=== PATIENT | male | born 1930 | race Caucasian/White ===

== ENCOUNTER 2017-11-07 20:35 | Emergency (ER) | payer MEDICARE ==
[~2017-11-07] VITALS: Ht 185.4 cm; Wt 65.7 kg
[~2017-11-07 20:35] MED LIST: ASPI-611 PO; ATEN25TA PO; CHOL10002 PO; CRAN307T PO; HYT1T PO; LISI40TA4 PO; MAGN400O6 PO; MULT1TAB74 PO; NIFE60TA2 PO; OMEG1CAP2 PF; POLY119P2 PO; ZOC40T PO
[2017-11-07 21:15] VITALS: BP 166/86
[2017-11-07] MEDS ORDERED: CLIN150C2 PO (23:11)
== END 2017-11-07 23:20 | disposition home or self-care (01) ==
LOC: ER 20:36
DX: L03.032 Cellulitis of left toe (principal); M79.675 Pain in left toe(s); I25.10 Atherosclerotic heart disease of native coronary artery without angina pectoris; I10 Essential (primary) hypertension; I25.2 Old myocardial infarction; Z90.49 Acquired absence of other specified parts of digestive tract; Z95.1 Presence of aortocoronary bypass graft; Z79.899 Other long term (current) drug therapy; Z79.82 Long term (current) use of aspirin
CPT/HCPCS: 99283

== ENCOUNTER 2017-11-18 09:15 | Emergency (ER) | payer MEDICARE ==
[~2017-11-18] VITALS: Ht 185.4 cm; Wt 81.8 kg
[~2017-11-18 09:15] MED LIST changes: +CLIN150C2 PO
[2017-11-18 09:18] VITALS: BP 141/67
[2017-11-18] MEDS ORDERED: TETanus/Pertussis (Acell)/Diphther VAC/PF (Tdap-Adult) 0.5ml syringe IM ONE (10:00)
[2017-11-18] MEDS ORDERED: CEPH-572 PO (10:18)
== END 2017-11-18 10:52 | disposition home or self-care (01) ==
LOC: ER 09:16
DX: M79.671 Pain in right foot (principal); I25.10 Atherosclerotic heart disease of native coronary artery without angina pectoris; I10 Essential (primary) hypertension; I25.2 Old myocardial infarction; Z90.49 Acquired absence of other specified parts of digestive tract; Z95.1 Presence of aortocoronary bypass graft; Z79.82 Long term (current) use of aspirin; Z79.899 Other long term (current) drug therapy; X50.1XXA Overexertion from prolonged static or awkward postures, initial encounter; Y93.89 Activity, other specified; Y92.091 Bathroom in other non-institutional residence as the place of occurrence of the external cause; Y99.9 Unspecified external cause status
CPT/HCPCS: 73620; 90471; 90715; 99284

== ENCOUNTER 2018-01-03 19:03 | Inpatient (IN) | payer MEDICARE ==
[~2018-01-03] VITALS: Ht 185.4 cm; Wt 82.0 kg
[~2018-01-03 19:03] MED LIST changes: -CLIN150C2 PO
[2018-01-03] MEDS ORDERED: normal saline 1000ML IV soln IVB ONE (20:20)
[2018-01-03 20:51] LABS: BASOPHILS % (AUTO) 0.4 % (0-1); EOSINOPHILS # (AUTO) 0.2 X10'3 (0-0.9); EOSINOPHILS % (AUTO) 1.9 % (0-6); HEMATOCRIT 34.2 % (42.0-52.0); HEMOGLOBIN 11.2 g/dl (14.0-17.9); LYMPHOCYTES # (AUTO) 1.3 X10'3 (1.1-4.8); LYMPHOCYTES % (AUTO) 12.8 % (21-51); MEAN CORPUSCULAR HEMOGLOBIN 32.3 PG (27.0-31.0); MEAN CORPUSCULAR HGB CONC 32.7 % (33.0-36.5); MEAN CORPUSCULAR VOLUME 98.8 FL (78-98); MEAN PLATELET VOLUME 7.2 FL (7.4-10.4); MONOCYTES # (AUTO) 0.8 X10'3 (0-0.9); MONOCYTES % (AUTO) 8.1 % (2-12); NEUTROPHILS # (AUTO) 7.9 X10'3 (1.8-7.7); NEUTROPHILS % (AUTO) 76.8 % (42-75); PLATELET COUNT 222 X10'3 (140-440); RED BLOOD COUNT 3.46 X10'6 (4.70-6.10); RED CELL DISTRIBUTION WIDTH 14.9 % (11.5-14.5); WHITE BLOOD COUNT 10.3 X10'3 (4.5-11.0)
[2018-01-03 20:56] LABS: PARTIAL THROMBOPLASTIN TIME 24 SECONDS (22-32); PROTHROMBIN TIME 10.4 SECONDS (9.0-12.0)
[2018-01-03 21:00] LABS: ALANINE AMINOTRANSFERASE 36 U/L (12-78); ALBUMIN 3.2 G/DL (3.4-5.0); ALKALINE PHOSPHATASE 55 IU/L (46-116); ANION GAP 13 (8-16); ASPARTATE AMINO TRANSFERASE 24 U/L (10-37); BILIRUBIN,TOTAL 0.3 MG/DL (0.1-1.0); BLOOD UREA NITROGEN 68 MG/DL (7-18); BUN/CREATININE RATIO 20.2 (5.4-32.0); CALCIUM 9.9 MG/DL (8.5-10.1); CHLORIDE 109 MMOL/L (99-107); CREATININE 3.37 MG/DL (0.60-1.10); GLUCOSE 110 MG/DL (70-104); POTASSIUM 5.2 MMOL/L (3.5-5.1); SODIUM 144 MMOL/L (135-145); TOTAL CARBON DIOXIDE 22.2 MMOL/L (24-32); TOTAL PROTEIN 6.4 G/DL (6.4-8.2); eGFR 17 ML/MIN
[2018-01-03] MEDS ORDERED: temazepam 15mg capsule PO PRN (21:00)
[2018-01-03 21:09] LABS: LACTIC SEPSIS 1.1 MMOL/L (0.4-2.0)
[2018-01-03 21:15] LABS: CREATINE KINASE 95 U/L (39-308); MAGNESIUM 2.7 MG/DL (1.5-2.4)
[2018-01-03 21:19] LABS: ACETAMINOPHEN < 2.0 UG/ML (10-30); ETHANOL < 0.010 GM/DL (0.0-0.010)
[2018-01-03 22:32] LABS: CLARITY,URINE CLEAR (Clear); COLOR,URINE YELLOW (Yellow); GLUCOSE, URINE NEGATIVE (Neg); KETONES,URINE NEGATIVE (Neg); LEUKOCYTE ESTERASE ,URINE NEGATIVE (Neg); NITRITES, URINE NEGATIVE (Neg); OCCULT BLOOD,URINE SMALL (Neg); PROTEIN,URINE NEGATIVE (Neg); UROBILINOGEN,URINE 0.2 E.U/dL (0.2-1.0)
[2018-01-03 22:35] LABS: UA COLLECTION TYPE CLN CATCH MIDSTREAM
[2018-01-03 22:46] LABS: URINE AMPHETAMINE SCREEN NEGATIVE (Neg); URINE BARBITUATE SCREEN NEGATIVE (Neg); URINE BENZODIAZEPINES SCREEN NEGATIVE (Neg); URINE CANNABINOID SCREEN NEGATIVE (Neg); URINE COCAINE SCREEN NEGATIVE (Neg); URINE METHADONE SCREEN NEGATIVE (Neg); URINE OPIATE SCREEN NEGATIVE (Neg); URINE PHENCYCLIDINE SCREEN NEGATIVE (Neg)
[2018-01-03 22:52] LABS: RBC,URINE 0-2 /HPF (0-2); WBC,URINE 0-4 /HPF (0-4)
[2018-01-03] MEDS ORDERED: DOCU-28 PO (22:52)
[2018-01-03 22:53] LABS: BACTERIA,URINE NONE SEEN /HPF (Neg); HYALINE CASTS 0-3 /LPF (NEGATIVE); SQUAMOUS EPITHELIAL CELL,UR NONE SEEN /LPF (FEW)
[2018-01-03] MEDS ORDERED: acetaminophen 325mg tablet PO PRN ×2 (23:25)
[2018-01-03] MEDS ORDERED: HYDROcodone/acetaminophen 5mg/325mg tablet PO PRN (23:25)
[2018-01-03] MEDS ORDERED: ondansetron/PF 4mg/2ml inj IV PRN (23:25)
[2018-01-03] MEDS ORDERED: magnesium hydroxide 30ml (MOM) UD suspension PO PRN (23:25)
[2018-01-03] MEDS ORDERED: mag hydrox/Alum hydrox/simeth 30ml oral suspension PO PRN (23:25)
[2018-01-04] VITALS (8 sets, daily range): BP systolic 137–165; BP diastolic 64–98
[2018-01-04 09:54] LABS: BASOPHILS % (AUTO) 0.3 % (0-1); EOSINOPHILS # (AUTO) 0.2 X10'3 (0-0.9); EOSINOPHILS % (AUTO) 1.9 % (0-6); HEMOGLOBIN 10.9 g/dl (14.0-17.9); LYMPHOCYTES # (AUTO) 1.4 X10'3 (1.1-4.8); LYMPHOCYTES % (AUTO) 13.5 % (21-51); MEAN CORPUSCULAR HEMOGLOBIN 32.5 PG (27.0-31.0); MEAN CORPUSCULAR VOLUME 98.7 FL (78-98); MEAN PLATELET VOLUME 7.3 FL (7.4-10.4); MONOCYTES # (AUTO) 0.8 X10'3 (0-0.9); MONOCYTES % (AUTO) 8.4 % (2-12); NEUTROPHILS # (AUTO) 7.6 X10'3 (1.8-7.7); NEUTROPHILS % (AUTO) 75.9 % (42-75); PLATELET COUNT 204 X10'3 (140-440); RED BLOOD COUNT 3.34 X10'6 (4.70-6.10); RED CELL DISTRIBUTION WIDTH 14.7 % (11.5-14.5)
[2018-01-04 10:16] LABS: ALBUMIN 2.9 G/DL (3.4-5.0); ANION GAP 7 (8-16); BLOOD UREA NITROGEN 62 MG/DL (7-18); BUN/CREATININE RATIO 18.7 (5.4-32.0); CALCIUM 9.2 MG/DL (8.5-10.1); CHLORIDE 109 MMOL/L (99-107); CREATININE 3.31 MG/DL (0.60-1.10); GLUCOSE 119 MG/DL (70-104); POTASSIUM 4.4 MMOL/L (3.5-5.1); SODIUM 140 MMOL/L (135-145); TOTAL CARBON DIOXIDE 23.9 MMOL/L (24-32); eGFR 18 ML/MIN
[2018-01-04] MEDS ORDERED: heparin 10,000 units/1 ML INJ IV PRN (12:40)
[2018-01-04] MEDS ORDERED: heparin 10,000 units/1 ML INJ IV ONE (12:40)
[2018-01-04 13:30] LABS: CHOL/HDL RATIO 2.3 (0.00-4.99); CHOLESTEROL 128 MG/DL (0-200); HDL CHOLESTEROL 56 MG/DL (35-60); LDL CHOLESTEROL 59 MG/DL (50-100); TRIGLYCERIDES 87 MG/DL (20-135)
[2018-01-04] MEDS: normal saline 1000ml 1,000 ML IV SCH ×2 (14:04→15:55)
[2018-01-04] MEDS: heparin 25,000 UNIT/250ml bag 250 ML IV SCH ×2 (14:11→23:42)
[2018-01-04] MEDS: atorvastatin 20mg tablet PO SCH (20:32)
[2018-01-04] MEDS: docusate sod 100mg capsule PO SCH (20:33)
[2018-01-05 02:09] LABS: BASOPHILS # (AUTO) 0.1 X10'3 (0-0.2); BASOPHILS % (AUTO) 1.2 % (0-1); EOSINOPHILS # (AUTO) 0.3 X10'3 (0-0.9); EOSINOPHILS % (AUTO) 3.4 % (0-6); HEMATOCRIT 30.1 % (42.0-52.0); HEMOGLOBIN 9.9 g/dl (14.0-17.9); LYMPHOCYTES # (AUTO) 1.9 X10'3 (1.1-4.8); LYMPHOCYTES % (AUTO) 18.8 % (21-51); MEAN CORPUSCULAR HEMOGLOBIN 32.5 PG (27.0-31.0); MEAN CORPUSCULAR HGB CONC 32.9 % (33.0-36.5); MEAN CORPUSCULAR VOLUME 98.9 FL (78-98); MEAN PLATELET VOLUME 7.4 FL (7.4-10.4); MONOCYTES # (AUTO) 1.2 X10'3 (0-0.9); MONOCYTES % (AUTO) 12.2 % (2-12); NEUTROPHILS # (AUTO) 6.5 X10'3 (1.8-7.7); NEUTROPHILS % (AUTO) 64.4 % (42-75); PLATELET COUNT 183 X10'3 (140-440); RED BLOOD COUNT 3.05 X10'6 (4.70-6.10); RED CELL DISTRIBUTION WIDTH 14.8 % (11.5-14.5)
[2018-01-05] MEDS: heparin 25,000 UNIT/250ml bag 250 ML IV SCH ×4 (02:50→23:35)
[2018-01-05] MEDS: normal saline 1000ml 1,000 ML IV SCH ×2 (05:14→16:53)
[2018-01-05 06:00] VITALS: BP 159/77
[2018-01-05] MEDS: HYDROcodone/acetaminophen 10/325mg tab PO PRN ×2 (07:03→23:10)
[2018-01-05 07:54] LABS: ALBUMIN 2.8 G/DL (3.4-5.0); ANION GAP 8 (8-16); BLOOD UREA NITROGEN 60 MG/DL (7-18); BUN/CREATININE RATIO 18.9 (5.4-32.0); CHLORIDE 110 MMOL/L (99-107); CREATININE 3.17 MG/DL (0.60-1.10); GLUCOSE 100 MG/DL (70-104); POTASSIUM 4.7 MMOL/L (3.5-5.1); SODIUM 142 MMOL/L (135-145); TOTAL CARBON DIOXIDE 23.6 MMOL/L (24-32); eGFR 19 ML/MIN
[2018-01-05 08:00] VITALS: BP_SYST 168; BP_SYST 173; BP_SYST 191; BP_DIAS 71; BP_DIAS 75; BP_DIAS 78
[2018-01-05] MEDS ORDERED: non-formulary drug (Omega-3 Fatty Acids/Fish Oil (Fish Oil 1,000 mg Capsule) 1 CAP) PF SCH (08:00)
[2018-01-05] MEDS: multivitamins, therapeutics tablet PO SCH (08:26)
[2018-01-05] MEDS: atenolol 25mg tablet PO SCH (08:27)
[2018-01-05] MEDS: vitamin D (cholecalciferol) 1,000 unit tablet PO SCH (08:27)
[2018-01-05] MEDS: Terazosin 1mg capsule PO SCH (08:28)
[2018-01-05] MEDS: docusate sod 100mg capsule PO SCH ×2 (08:28→20:42)
[2018-01-05] MEDS: aspirin 81mg tab.chew PO SCH (08:28)
[2018-01-05] MEDS: lisinopril 20mg tablet PO SCH (08:28)
[2018-01-05 10:00] VITALS: BP 133/65
[2018-01-05 17:30] VITALS: BP 191/71
[2018-01-05] MEDS ORDERED: hydrALAZINE 20mg/ml inj. IV PRN (17:40)
[2018-01-05] MEDS: atorvastatin 20mg tablet PO SCH (20:42)
[2018-01-05 22:19] VITALS: BP_SYST 139; BP_SYST 141; BP_SYST 153; BP_DIAS 59; BP_DIAS 66; BP_DIAS 73
[2018-01-06] MEDS: HYDROcodone/acetaminophen 10/325mg tab PO PRN (03:09)
[2018-01-06 06:52] VITALS: BP 128/61
[2018-01-06] MEDS: multivitamins, therapeutics tablet PO SCH (07:34)
[2018-01-06] MEDS: atenolol 25mg tablet PO SCH (07:34)
[2018-01-06] MEDS: aspirin 81mg tab.chew PO SCH (07:35)
[2018-01-06] MEDS: docusate sod 100mg capsule PO SCH ×2 (07:35→20:45)
[2018-01-06] MEDS: vitamin D (cholecalciferol) 1,000 unit tablet PO SCH (07:35)
[2018-01-06] MEDS: Terazosin 1mg capsule PO SCH (07:36)
[2018-01-06] MEDS: normal saline 1000ml 1,000 ML IV SCH (07:36)
[2018-01-06 07:37] LABS: ALBUMIN 2.6 G/DL (3.4-5.0); ANION GAP 13 (8-16); BLOOD UREA NITROGEN 57 MG/DL (7-18); BUN/CREATININE RATIO 16.5 (5.4-32.0); CALCIUM 8.7 MG/DL (8.5-10.1); CHLORIDE 110 MMOL/L (99-107); CREATININE 3.46 MG/DL (0.60-1.10); GLUCOSE 113 MG/DL (70-104); POTASSIUM 4.4 MMOL/L (3.5-5.1); SODIUM 142 MMOL/L (135-145); TOTAL CARBON DIOXIDE 19.2 MMOL/L (24-32); eGFR 17 ML/MIN
[2018-01-06] MEDS: lisinopril 20mg tablet PO SCH (07:38)
[2018-01-06 08:08] LABS: BASOPHILS % (AUTO) 0.4 % (0-1); EOSINOPHILS # (AUTO) 0.4 X10'3 (0-0.9); EOSINOPHILS % (AUTO) 3.8 % (0-6); HEMATOCRIT 31.9 % (42.0-52.0); HEMOGLOBIN 10.6 g/dl (14.0-17.9); LYMPHOCYTES # (AUTO) 2.2 X10'3 (1.1-4.8); LYMPHOCYTES % (AUTO) 20.9 % (21-51); MEAN CORPUSCULAR HEMOGLOBIN 32.7 PG (27.0-31.0); MEAN CORPUSCULAR HGB CONC 33.1 % (33.0-36.5); MEAN CORPUSCULAR VOLUME 98.7 FL (78-98); MEAN PLATELET VOLUME 7.8 FL (7.4-10.4); MONOCYTES # (AUTO) 1.2 X10'3 (0-0.9); MONOCYTES % (AUTO) 11.1 % (2-12); NEUTROPHILS # (AUTO) 6.7 X10'3 (1.8-7.7); NEUTROPHILS % (AUTO) 63.8 % (42-75); PLATELET COUNT 195 X10'3 (140-440); RED BLOOD COUNT 3.23 X10'6 (4.70-6.10); RED CELL DISTRIBUTION WIDTH 14.8 % (11.5-14.5); WHITE BLOOD COUNT 10.6 X10'3 (4.5-11.0)
[2018-01-06 11:55] VITALS: BP 129/60
[2018-01-06 18:00] VITALS: BP 141/69
[2018-01-06 20:00] VITALS: BP_SYST 122; BP_SYST 125; BP_SYST 133; BP_DIAS 52; BP_DIAS 56; BP_DIAS 61
[2018-01-06] MEDS: atorvastatin 20mg tablet PO SCH (20:45)
[2018-01-06 22:00] VITALS: BP 125/56
[2018-01-07] MEDS: HYDROcodone/acetaminophen 10/325mg tab PO PRN (00:37)
[2018-01-07 05:00] VITALS: BP_SYST 123; BP_SYST 145; BP_DIAS 56; BP_DIAS 73
[2018-01-07 05:36] LABS: BASOPHILS % (AUTO) 0.4 % (0-1); EOSINOPHILS # (AUTO) 0.4 X10'3 (0-0.9); EOSINOPHILS % (AUTO) 3.9 % (0-6); HEMATOCRIT 29.3 % (42.0-52.0); HEMOGLOBIN 9.6 g/dl (14.0-17.9); LYMPHOCYTES # (AUTO) 1.6 X10'3 (1.1-4.8); LYMPHOCYTES % (AUTO) 16.6 % (21-51); MEAN CORPUSCULAR HEMOGLOBIN 32.2 PG (27.0-31.0); MEAN CORPUSCULAR HGB CONC 32.8 % (33.0-36.5); MEAN CORPUSCULAR VOLUME 98.2 FL (78-98); MEAN PLATELET VOLUME 7.4 FL (7.4-10.4); MONOCYTES # (AUTO) 1.1 X10'3 (0-0.9); MONOCYTES % (AUTO) 11.2 % (2-12); NEUTROPHILS # (AUTO) 6.4 X10'3 (1.8-7.7); NEUTROPHILS % (AUTO) 67.9 % (42-75); PLATELET COUNT 173 X10'3 (140-440); RED BLOOD COUNT 2.99 X10'6 (4.70-6.10); RED CELL DISTRIBUTION WIDTH 14.9 % (11.5-14.5); WHITE BLOOD COUNT 9.4 X10'3 (4.5-11.0)
[2018-01-07 05:52] LABS: ALBUMIN 2.4 G/DL (3.4-5.0); ANION GAP 9 (8-16); BLOOD UREA NITROGEN 60 MG/DL (7-18); BUN/CREATININE RATIO 18.3 (5.4-32.0); CALCIUM 8.8 MG/DL (8.5-10.1); CHLORIDE 111 MMOL/L (99-107); CREATININE 3.27 MG/DL (0.60-1.10); GLUCOSE 96 MG/DL (70-104); POTASSIUM 4.9 MMOL/L (3.5-5.1); SODIUM 142 MMOL/L (135-145); TOTAL CARBON DIOXIDE 22.3 MMOL/L (24-32); eGFR 18 ML/MIN
[2018-01-07 07:23] VITALS: BP 179/89
[2018-01-07] MEDS: aspirin 81mg tab.chew PO SCH (07:48)
[2018-01-07] MEDS: docusate sod 100mg capsule PO SCH ×2 (07:48→20:02)
[2018-01-07] MEDS: Terazosin 1mg capsule PO SCH (07:48)
[2018-01-07] MEDS: atenolol 25mg tablet PO SCH (07:49)
[2018-01-07] MEDS: multivitamins, therapeutics tablet PO SCH (07:50)
[2018-01-07] MEDS: vitamin D (cholecalciferol) 1,000 unit tablet PO SCH (07:51)
[2018-01-07] MEDS: enoxaparin 30mg/0.3ml syringe SUBCUT SCH (07:52)
[2018-01-07 10:24] VITALS: BP_SYST 147; BP_SYST 154; BP_DIAS 62; BP_DIAS 71
[2018-01-07 10:26] VITALS: BP 142/60
[2018-01-07 18:00] VITALS: BP 151/80
[2018-01-07] MEDS: atorvastatin 20mg tablet PO SCH (20:02)
[2018-01-07 22:00] VITALS: BP 161/86
[2018-01-08 05:51] LABS: BASOPHILS % (AUTO) 0.3 % (0-1); EOSINOPHILS # (AUTO) 0.4 X10'3 (0-0.9); HEMATOCRIT 28.7 % (42.0-52.0); HEMOGLOBIN 9.4 g/dl (14.0-17.9); LYMPHOCYTES # (AUTO) 1.4 X10'3 (1.1-4.8); LYMPHOCYTES % (AUTO) 14.5 % (21-51); MEAN CORPUSCULAR HEMOGLOBIN 32.2 PG (27.0-31.0); MEAN CORPUSCULAR HGB CONC 32.9 % (33.0-36.5); MEAN CORPUSCULAR VOLUME 97.7 FL (78-98); MEAN PLATELET VOLUME 7.8 FL (7.4-10.4); MONOCYTES # (AUTO) 1.1 X10'3 (0-0.9); MONOCYTES % (AUTO) 11.6 % (2-12); NEUTROPHILS # (AUTO) 6.7 X10'3 (1.8-7.7); NEUTROPHILS % (AUTO) 69.6 % (42-75); PLATELET COUNT 192 X10'3 (140-440); RED BLOOD COUNT 2.93 X10'6 (4.70-6.10); WHITE BLOOD COUNT 9.6 X10'3 (4.5-11.0)
[2018-01-08 06:00] VITALS: BP 143/81
[2018-01-08 06:04] LABS: ALBUMIN 2.3 G/DL (3.4-5.0); ANION GAP 12 (8-16); BLOOD UREA NITROGEN 58 MG/DL (7-18); BUN/CREATININE RATIO 18.1 (5.4-32.0); CHLORIDE 110 MMOL/L (99-107); CREATININE 3.21 MG/DL (0.60-1.10); GLUCOSE 92 MG/DL (70-104); POTASSIUM 4.8 MMOL/L (3.5-5.1); SODIUM 142 MMOL/L (135-145); TOTAL CARBON DIOXIDE 19.9 MMOL/L (24-32); eGFR 18 ML/MIN
[2018-01-08] MEDS: multivitamins, therapeutics tablet PO SCH (07:54)
[2018-01-08] MEDS: Terazosin 1mg capsule PO SCH (07:54)
[2018-01-08] MEDS: aspirin 81mg tab.chew PO SCH (07:54)
[2018-01-08] MEDS: docusate sod 100mg capsule PO SCH (07:54)
[2018-01-08] MEDS: atenolol 25mg tablet PO SCH (07:54)
[2018-01-08] MEDS: vitamin D (cholecalciferol) 1,000 unit tablet PO SCH (07:54)
[2018-01-08] MEDS: enoxaparin 30mg/0.3ml syringe SUBCUT SCH (07:55)
[2018-01-08 10:00] VITALS: BP_SYST 130; BP_SYST 140; BP_SYST 150; BP_DIAS 55; BP_DIAS 59; BP_DIAS 69
== END 2018-01-08 13:10 | DRG 683 ==
LOC: ER 19:04 → ED HOLD 23:22 → ORTHO 4S 01-04 00:55
PROVIDERS: ADMIT Hospitalist; ATTEND Internal Medicine
DX: N17.9 Acute kidney failure, unspecified (principal); E44.1 Mild protein-calorie malnutrition; N18.4 Chronic kidney disease, stage 4 (severe); W19.XXXA Unspecified fall, initial encounter; D63.8 Anemia in other chronic diseases classified elsewhere; E78.5 Hyperlipidemia, unspecified; E83.41 Hypermagnesemia; E86.0 Dehydration; R74.8 Abnormal levels of other serum enzymes; Z60.2 Problems related to living alone; I12.9 Hypertensive chronic kidney disease with stage 1 through stage 4 chronic kidney disease, or unspecified chronic kidney disease; I25.10 Atherosclerotic heart disease of native coronary artery without angina pectoris; N40.0 Benign prostatic hyperplasia without lower urinary tract symptoms; Z66 Do not resuscitate; I25.2 Old myocardial infarction; Z90.5 Acquired absence of kidney; Z90.49 Acquired absence of other specified parts of digestive tract; Z95.1 Presence of aortocoronary bypass graft; Z91.041 Radiographic dye allergy status; Z79.899 Other long term (current) drug therapy; Z79.82 Long term (current) use of aspirin; Z82.3 Family history of stroke; Z82.49 Family history of ischemic heart disease and other diseases of the circulatory system; Z82.5 Family history of asthma and other chronic lower respiratory diseases; Y93.89 Activity, other specified; Z68.23 Body mass index [BMI] 23.0-23.9, adult; Y92.098 Other place in other non-institutional residence as the place of occurrence of the external cause; Y99.8 Other external cause status
CPT/HCPCS: 36415; 70450; 71045; 71250; 76775; 80048; 80053; 80061; 80305; 80320; 80329; 81001; 82140; 82550; 83605; 83735; 84439; 84443; 84484; 85025; 85610; 85651; 85730; 87040; 87070; 93005; 93306; 93970; 97110; 97116; 97162; 97530; 99285; G0378; J0360; J1644; J1650; J7030

== ENCOUNTER 2018-07-21 13:53 | Emergency (ER) | payer MEDICARE ==
[~2018-07-21] VITALS: Ht 188 cm; Wt 77.3 kg
[~2018-07-21 13:53] MED LIST changes: +DOCU-28 PO; -MAGN400O6 PO; -POLY119P2 PO
[2018-07-21 14:09] VITALS: BP 107/62
[2018-07-21] MEDS ORDERED: LIDOcaine 1% w/epiNEPHrine 1:200,000 30ml vial IM ONE (14:50)
[2018-07-21] MEDS ORDERED: acetaminophen 325mg tablet PO ONE (14:50)
[2018-07-21] MEDS ORDERED: lidocaine 1%/epinephrine 1:100,000 injection 50ml vial ONE (15:00)
[2018-07-21] MEDS ORDERED: bacitracin 15gm ointment TP ONE (15:35)
== END 2018-07-21 16:13 | disposition home or self-care (01) ==
LOC: ER 13:54
DX: L60.1 Onycholysis (principal); I10 Essential (primary) hypertension; I25.2 Old myocardial infarction; I25.10 Atherosclerotic heart disease of native coronary artery without angina pectoris; Z90.49 Acquired absence of other specified parts of digestive tract; Z95.1 Presence of aortocoronary bypass graft; Z88.8 Allergy status to other drugs, medicaments and biological substances
CPT/HCPCS: 11730; 73660; 99284; J3490; 99283

== ENCOUNTER 2018-09-17 01:11 | Emergency (ER) | payer MEDICARE ==
[~2018-09-17] VITALS: Ht 185.4 cm; Wt 77.0 kg
[2018-09-17 01:13] VITALS: BP 142/85
--- NOTE | 2018-09-17 01:34 | NUR ---
Patient is complaining of right foot pain X2 weeks. Pain described as shooting, it goes from the ball of his foot to the toes. Bilateral edema to lower extremites and feet. Bilateral dorsalis pedis pulses aarre present.
== END 2018-09-17 03:02 | disposition home or self-care (01) ==
LOC: ER 01:11
DX: G89.29 Other chronic pain (principal); M79.674 Pain in right toe(s); G62.9 Polyneuropathy, unspecified; I25.10 Atherosclerotic heart disease of native coronary artery without angina pectoris; I10 Essential (primary) hypertension; I25.2 Old myocardial infarction; E07.9 Disorder of thyroid, unspecified; Z90.49 Acquired absence of other specified parts of digestive tract; Z95.1 Presence of aortocoronary bypass graft; Z98.890 Other specified postprocedural states; Z88.8 Allergy status to other drugs, medicaments and biological substances; Z79.82 Long term (current) use of aspirin; Z79.899 Other long term (current) drug therapy
CPT/HCPCS: 99284

== ENCOUNTER 2018-09-27 21:56 | Inpatient (IN) | payer MEDICARE ==
[~2018-09-27] VITALS: Ht 182.9 cm; Wt 87.1 kg
--- NOTE | 2018-09-27 22:03 | NUR ---
DR NAGY AT BEDSIDE WITH PT
[2018-09-27 22:29] LABS: BASOPHILS # (AUTO) 0.1 X10'3 (0-0.2); BASOPHILS % (AUTO) 0.7 % (0-1); EOSINOPHILS # (AUTO) 0.4 X10'3 (0-0.9); EOSINOPHILS % (AUTO) 4.2 % (0-6); HEMATOCRIT 32.3 % (42.0-52.0); HEMOGLOBIN 10.7 g/dl (14.0-17.9); LYMPHOCYTES # (AUTO) 0.8 X10'3 (1.1-4.8); LYMPHOCYTES % (AUTO) 8.7 % (21-51); MEAN CORPUSCULAR HEMOGLOBIN 32.3 PG (27.0-31.0); MEAN CORPUSCULAR HGB CONC 33.2 g/dL (33.0-36.5); MEAN CORPUSCULAR VOLUME 97.2 FL (78-98); MEAN PLATELET VOLUME 7.2 FL (7.4-10.4); MONOCYTES # (AUTO) 0.9 X10'3 (0-0.9); NEUTROPHILS # (AUTO) 6.9 X10'3 (1.8-7.7); NEUTROPHILS % (AUTO) 76.4 % (42-75); PLATELET COUNT 205 X10'3 (140-440); RED BLOOD COUNT 3.33 X10'6 (4.70-6.10); RED CELL DISTRIBUTION WIDTH 13.8 % (11.5-14.5)
[2018-09-27 22:38] LABS: ALANINE AMINOTRANSFERASE 18 U/L (12-78); ALBUMIN/GLOBULIN RATIO 0.8 (1.1-1.5); ALKALINE PHOSPHATASE 70 IU/L (46-116); ANION GAP 12 (8-16); ASPARTATE AMINO TRANSFERASE 16 U/L (10-37); BILIRUBIN,TOTAL 0.3 MG/DL (0.1-1.0); BLOOD UREA NITROGEN 83 MG/DL (7-18); CALCIUM 9.7 MG/DL (8.5-10.1); CHLORIDE 111 MMOL/L (99-107); CREATININE 4.15 MG/DL (0.60-1.10); GLUCOSE 112 MG/DL (70-104); POTASSIUM 4.2 MMOL/L (3.5-5.1); SODIUM 145 MMOL/L (135-145); TOTAL CARBON DIOXIDE 22.4 MMOL/L (24-32); TOTAL PROTEIN 6.6 G/DL (6.4-8.2); eGFR 14 ML/MIN
[2018-09-27 22:45] LABS: MAGNESIUM 2.2 MG/DL (1.5-2.4)
[2018-09-27] MEDS ORDERED: normal saline 1000ML IV soln IVB ONE (23:15)
--- NOTE | 2018-09-27 23:18 | NUR ---
PT TO CT
[2018-09-27] MEDS ORDERED: magnesium 2GM in 50ml NS 50 ML IV PRN (23:35)
[2018-09-27] MEDS ORDERED: potassium Cl 20 mEq SR tablet PO PRN ×2 (23:35)
[2018-09-27] MEDS ORDERED: magnesium Cl slow-release 64mg tablet PO PRN (23:35)
[2018-09-27] MEDS ORDERED: magnesium 4gm in 100ml NS 100 ML IV PRN (23:35)
[2018-09-27] MEDS ORDERED: potassium CL 10mEq/100ml bag 100 ML IV PRN ×2 (23:35)
[2018-09-27] MEDS: normal saline 1000ml 1,000 ML IV SCH (23:53)
[2018-09-27] MEDS ORDERED: FURO20TA4 PO (23:59)
[2018-09-28] VITALS (7 sets, daily range): BP systolic 107–167; BP diastolic 41–82
--- NOTE | 2018-09-28 00:09 | NUR ---
PATITO [phone]
--- NOTE | 2018-09-28 04:30 | NUR ---
Patient in room PCU 3014. I have received report from Laverne DUARTE and had the opportunity to ask questions and assume patient care. Patient arrived to telemetry from by tushar. He was able to stand and get himself into the hospital bed. Patient was oriented to his room. Vitals were taken, telemetry was placed and the call light was given to him to use when he needs assistance.
[2018-09-28 06:12] LABS: BASOPHILS % (AUTO) 0.5 % (0-1); EOSINOPHILS # (AUTO) 0.3 X10'3 (0-0.9); EOSINOPHILS % (AUTO) 3.3 % (0-6); HEMATOCRIT 32.8 % (42.0-52.0); HEMOGLOBIN 10.9 g/dl (14.0-17.9); LYMPHOCYTES # (AUTO) 1.9 X10'3 (1.1-4.8); MEAN CORPUSCULAR HEMOGLOBIN 32.5 PG (27.0-31.0); MEAN CORPUSCULAR HGB CONC 33.3 g/dL (33.0-36.5); MEAN CORPUSCULAR VOLUME 97.8 FL (78-98); MEAN PLATELET VOLUME 7.3 FL (7.4-10.4); MONOCYTES % (AUTO) 10.7 % (2-12); NEUTROPHILS # (AUTO) 6.3 X10'3 (1.8-7.7); NEUTROPHILS % (AUTO) 65.5 % (42-75); PLATELET COUNT 200 X10'3 (140-440); RED BLOOD COUNT 3.35 X10'6 (4.70-6.10); RED CELL DISTRIBUTION WIDTH 13.8 % (11.5-14.5); WHITE BLOOD COUNT 9.6 X10'3 (4.5-11.0)
--- NOTE | 2018-09-28 06:15 | NUR ---
Problems reprioritized. Patient report given, questions answered & plan of care reviewed with Daniel DUARTE.
[2018-09-28 06:23] LABS: ALBUMIN 2.7 G/DL (3.4-5.0); ANION GAP 10 (8-16); BLOOD UREA NITROGEN 77 MG/DL (7-18); BUN/CREATININE RATIO 20.4 (5.4-32.0); CALCIUM 9.5 MG/DL (8.5-10.1); CHLORIDE 113 MMOL/L (99-107); CREATININE 3.77 MG/DL (0.60-1.10); GLUCOSE 90 MG/DL (70-104); MAGNESIUM 2.2 MG/DL (1.5-2.4); POTASSIUM 3.7 MMOL/L (3.5-5.1); SODIUM 146 MMOL/L (135-145); TOTAL CARBON DIOXIDE 22.8 MMOL/L (24-32); eGFR 15 ML/MIN
--- NOTE | 2018-09-28 06:25 | NUR ---
Patient in room PCU 3014. I have received report from Lisa DUARTE and had the opportunity to ask questions and assume patient care.
[2018-09-28] MEDS: K and/or MAG REPLACEMENT MC SCH (08:00)
[2018-09-28] MEDS: NIFEdipine XL 30mg tablet PO SCH (09:00)
[2018-09-28] MEDS: aspirin 81mg tab.chew PO SCH (09:00)
[2018-09-28] MEDS: atenolol 25mg tablet PO SCH (09:01)
[2018-09-28] MEDS: Terazosin 1mg capsule PO SCH (09:01)
[2018-09-28] MEDS: docusate sod 100mg capsule PO SCH ×2 (09:01→20:10)
[2018-09-28] MEDS: normal saline 1000ml 1,000 ML IV SCH (16:08)
--- NOTE | 2018-09-28 17:40 | NUR ---
Paged Dr. Mendoza PAGER ID: [phone] MESSAGE: Daniel DUARTE [phone] Dean Guillen: Pt c/o constipation. Pt is ordered 100 mg Colace BID. Pt requesting Milk of Magnesia and/or Dulcolax PRN. Thank you.
[2018-09-28] MEDS ORDERED: bisacodyl 10mg suppository rectal RC ONE (17:45)
--- NOTE | 2018-09-28 18:05 | NUR ---
Problems reprioritized. Patient report given, questions answered & plan of care reviewed with Nisa DUARTE.
--- NOTE | 2018-09-28 18:15 | NUR ---
Patient in room PCU 3014. I have received report from Daniel DUARTE and had the opportunity to ask questions and assume patient care.
[2018-09-28] MEDS: atorvastatin 20mg tablet PO SCH (20:10)
[2018-09-29] VITALS (7 sets, daily range): BP systolic 105–166; BP diastolic 48–75
[2018-09-29] MEDS: normal saline 1000ml 1,000 ML IV SCH ×2 (04:35→18:18)
[2018-09-29 05:33] LABS: ALBUMIN 2.5 G/DL (3.4-5.0); ANION GAP 10 (8-16); BLOOD UREA NITROGEN 69 MG/DL (7-18); BUN/CREATININE RATIO 20.1 (5.4-32.0); CALCIUM 9.1 MG/DL (8.5-10.1); CHLORIDE 113 MMOL/L (99-107); CREATININE 3.43 MG/DL (0.60-1.10); GLUCOSE 89 MG/DL (70-104); MAGNESIUM 2.1 MG/DL (1.5-2.4); POTASSIUM 3.8 MMOL/L (3.5-5.1); SODIUM 146 MMOL/L (135-145); TOTAL CARBON DIOXIDE 23.2 MMOL/L (24-32); eGFR 17 ML/MIN
[2018-09-29 05:49] LABS: BASOPHILS # (AUTO) 0.1 X10'3 (0-0.2); BASOPHILS % (AUTO) 0.7 % (0-1); EOSINOPHILS # (AUTO) 0.5 X10'3 (0-0.9); EOSINOPHILS % (AUTO) 5.8 % (0-6); HEMATOCRIT 30.8 % (42.0-52.0); HEMOGLOBIN 10.5 g/dl (14.0-17.9); LYMPHOCYTES # (AUTO) 1.4 X10'3 (1.1-4.8); LYMPHOCYTES % (AUTO) 15.2 % (21-51); MEAN CORPUSCULAR HEMOGLOBIN 32.9 PG (27.0-31.0); MEAN CORPUSCULAR VOLUME 96.8 FL (78-98); MEAN PLATELET VOLUME 7.2 FL (7.4-10.4); MONOCYTES # (AUTO) 0.9 X10'3 (0-0.9); MONOCYTES % (AUTO) 10.4 % (2-12); NEUTROPHILS # (AUTO) 6.1 X10'3 (1.8-7.7); NEUTROPHILS % (AUTO) 67.9 % (42-75); PLATELET COUNT 204 X10'3 (140-440); RED BLOOD COUNT 3.18 X10'6 (4.70-6.10); RED CELL DISTRIBUTION WIDTH 13.8 % (11.5-14.5)
--- NOTE | 2018-09-29 06:35 | NUR ---
Problems reprioritized. Patient report given, questions answered & plan of care reviewed with Daniel Rosenthal.
--- NOTE | 2018-09-29 06:59 | NUR ---
Patient in room PCU 3014a. I have received report from FELICIA Paula and had the opportunity to ask questions and assume patient care.
[2018-09-29] MEDS: K and/or MAG REPLACEMENT MC SCH (08:00)
[2018-09-29] MEDS: docusate sod 100mg capsule PO SCH ×2 (09:36→20:34)
[2018-09-29] MEDS: atenolol 25mg tablet PO SCH (09:36)
[2018-09-29] MEDS: aspirin 81mg tab.chew PO SCH (09:37)
[2018-09-29] MEDS: NIFEdipine XL 30mg tablet PO SCH (09:37)
[2018-09-29] MEDS: Terazosin 1mg capsule PO SCH (09:37)
--- NOTE | 2018-09-29 12:58 | NUR ---
WOUND INFECTION EDUCATION PROVIDED BY [facility]OUND [facility] 1. Patient instructed to call their primary doctor, or go the ED immediately if any of the following symptoms occur: * Increased pain in wound * Increase in drainage from the wound * Redness in the skin surrounding the wound * Warmth in the skin surrounding the wound * Bleeding from the wound * Temperature of 101 or greater 2. If any of these occur while in the hospital tell a nurse immediately. Addendum: 09/29/18 at 1258 by Jayant Maxwell RN Amended: Links added.
--- NOTE | 2018-09-29 18:21 | NUR ---
Patient in room PCU 3014. I have received report from Lesly DUARTE and Daniel DUARTE and had the opportunity to ask questions and assume patient care.
--- NOTE | 2018-09-29 18:25 | NUR ---
Problems reprioritized. Patient report given, questions answered & plan of care reviewed with Brook DUARTE.
[2018-09-29] MEDS: atorvastatin 20mg tablet PO SCH (20:34)
--- NOTE | 2018-09-30 01:02 | NUR ---
[place] documentation: I have reviewed and agree with all interventions, assessments performed and documented by Ana DUARTE. [facility] Medication Administration: For this medication-pass time frame, all medication were reviewed, dispensed, administered and documented per hospital policy by Ana DUARTE.
[2018-09-30 02:00] VITALS: BP 152/66
[2018-09-30 05:15] LABS: BASOPHILS % (AUTO) 0.5 % (0-1); EOSINOPHILS # (AUTO) 0.6 X10'3 (0-0.9); EOSINOPHILS % (AUTO) 7.1 % (0-6); HEMATOCRIT 31.3 % (42.0-52.0); HEMOGLOBIN 10.7 g/dl (14.0-17.9); LYMPHOCYTES # (AUTO) 1.6 X10'3 (1.1-4.8); LYMPHOCYTES % (AUTO) 18.6 % (21-51); MEAN CORPUSCULAR HEMOGLOBIN 33.2 PG (27.0-31.0); MEAN CORPUSCULAR HGB CONC 34.1 g/dL (33.0-36.5); MEAN CORPUSCULAR VOLUME 97.2 FL (78-98); MEAN PLATELET VOLUME 7.2 FL (7.4-10.4); MONOCYTES # (AUTO) 0.9 X10'3 (0-0.9); MONOCYTES % (AUTO) 10.4 % (2-12); NEUTROPHILS # (AUTO) 5.4 X10'3 (1.8-7.7); NEUTROPHILS % (AUTO) 63.4 % (42-75); PLATELET COUNT 204 X10'3 (140-440); RED BLOOD COUNT 3.22 X10'6 (4.70-6.10); RED CELL DISTRIBUTION WIDTH 13.7 % (11.5-14.5); WHITE BLOOD COUNT 8.5 X10'3 (4.5-11.0)
[2018-09-30 05:36] LABS: ALBUMIN 2.3 G/DL (3.4-5.0); ANION GAP 10 (8-16); BLOOD UREA NITROGEN 63 MG/DL (7-18); BUN/CREATININE RATIO 20.9 (5.4-32.0); CALCIUM 8.6 MG/DL (8.5-10.1); CHLORIDE 115 MMOL/L (99-107); CREATININE 3.02 MG/DL (0.60-1.10); GLUCOSE 84 MG/DL (70-104); MAGNESIUM 1.8 MG/DL (1.5-2.4); POTASSIUM 3.9 MMOL/L (3.5-5.1); SODIUM 147 MMOL/L (135-145); TOTAL CARBON DIOXIDE 21.9 MMOL/L (24-32); eGFR 20 ML/MIN
[2018-09-30] MEDS: normal saline 1000ml 1,000 ML IV SCH (06:08)
--- NOTE | 2018-09-30 06:11 | NUR ---
Problems reprioritized. Patient report given, questions answered & plan of care reviewed with Kathryn DUARTE and Lesly DUARTE.
--- NOTE | 2018-09-30 06:15 | NUR ---
Patient in room PCU 3014. I have received report from FELICIA Doe and had the opportunity to ask questions and assume patient care.
[2018-09-30 07:00] VITALS: BP 150/66
--- NOTE | 2018-09-30 07:13 | NUR ---
Patient in room PCU 3014A. I have received report from FELICIA Doe and FELICIA Perez and had the opportunity to ask questions and assume patient care. pt awake in bed, denies any needs at this time.
[2018-09-30 08:00] VITALS: BP_SYST 103; BP_SYST 120; BP_DIAS 45; BP_DIAS 47; BP_DIAS 79
[2018-09-30] MEDS: K and/or MAG REPLACEMENT MC SCH (08:00)
[2018-09-30] MEDS: atenolol 25mg tablet PO SCH (08:17)
[2018-09-30] MEDS: docusate sod 100mg capsule PO SCH (08:17)
[2018-09-30] MEDS: Terazosin 1mg capsule PO SCH (08:17)
[2018-09-30] MEDS: NIFEdipine XL 30mg tablet PO SCH (08:17)
[2018-09-30] MEDS: aspirin 81mg tab.chew PO SCH (08:17)
[2018-09-30 11:00] VITALS: BP 120/79
[2018-09-30 15:00] VITALS: BP 132/57
--- NOTE | 2018-09-30 17:25 | NUR ---
Pt discharged. MD order received for discharge. Pt VS Temp 98.0, HR 51, RR, 18, SP02 98% on RA, BP 132/57. Pt was given discharge instructions. Appointment made with PCP Dr. Gates for 10/06/14 at 1015. Pts IV was d/c'd, catheter intact. Tele monitor removed and returned to telecommunications line installer. All questions and concerns were addressed. Pt transferred from bed to wheel chair. Pt was wheeled out of building by RN to meet son in law for transport.
--- NOTE | 2018-09-30 18:08 | NUR ---
[place] documentation: I have reviewed and agree with all interventions, assessments performed and documented by FELICIA Grace.
== END 2018-09-30 17:20 | disposition home health service (06) | DRG 682 ==
LOC: ER 21:56 → EDBEDREQ 09-28 03:12 → PCU 3S 09-28 04:09 → CMPBEDREQ 09-28 15:16
PROVIDERS: ADMIT Internal Medicine; ATTEND Internal Medicine
DX: N17.9 Acute kidney failure, unspecified (principal); I21.A1 Myocardial infarction type 2; I13.0 Hypertensive heart and chronic kidney disease with heart failure and stage 1 through stage 4 chronic kidney disease, or unspecified chronic kidney disease; N18.4 Chronic kidney disease, stage 4 (severe); I25.10 Atherosclerotic heart disease of native coronary artery without angina pectoris; E78.5 Hyperlipidemia, unspecified; N40.0 Benign prostatic hyperplasia without lower urinary tract symptoms; W01.0XXA Fall on same level from slipping, tripping and stumbling without subsequent striking against object, initial encounter; S00.83XA Contusion of other part of head, initial encounter; Z66 Do not resuscitate; D64.9 Anemia, unspecified; Z90.5 Acquired absence of kidney; I50.9 Heart failure, unspecified; Z79.82 Long term (current) use of aspirin; Y92.89 Other specified places as the place of occurrence of the external cause; Z95.1 Presence of aortocoronary bypass graft; Y99.8 Other external cause status; I25.2 Old myocardial infarction; Y93.89 Activity, other specified; Z79.899 Other long term (current) drug therapy; Z88.6 Allergy status to analgesic agent
CPT/HCPCS: 36415; 70450; 71045; 80048; 80053; 83735; 83880; 84100; 84484; 85025; 87081; 93005; 93306; 97110; 97116; 97162; 97530; 97535; 99285; G0378; J7030

== ENCOUNTER 2019-05-15 17:23 | Emergency (ER) | payer MEDICARE, MEDICAID ==
[~2019-05-15] VITALS: Ht 185.4 cm; Wt 81.8 kg
[~2019-05-15 17:23] MED LIST changes: -CHOL10002 PO; +CHOL400T14 PO; +FURO20TA4 PO; -LISI40TA4 PO; +TEMA15CA5 PO
[2019-05-15] MEDS ORDERED: bacitracin 15gm ointment TP ONE (17:45)
[2019-05-15] MEDS ORDERED: TETanus/Pertussis (Acell)/Diphther VAC/PF (Tdap-Adult) 0.5ml syringe IMVAC ONE (17:45)
[2019-05-15] MEDS ORDERED: LIDOcaine 1% W/epiNEPHrine 1:200,000 10ml vial IJ ONE (17:45)
[2019-05-15 19:13] VITALS: BP 114/60
--- NOTE | 2019-05-15 19:38 | NUR ---
gave report to Caroline at [place]; Yojana Granda will be contacted for last picker
== END 2019-05-15 20:10 | disposition home or self-care (01) ==
LOC: ER 17:24
DX: S01.01XA Laceration without foreign body of scalp, initial encounter (principal); I10 Essential (primary) hypertension; I25.10 Atherosclerotic heart disease of native coronary artery without angina pectoris; R51 Headache; I25.2 Old myocardial infarction; Z90.49 Acquired absence of other specified parts of digestive tract; Z90.5 Acquired absence of kidney; J44.9 Chronic obstructive pulmonary disease, unspecified; Z79.82 Long term (current) use of aspirin; Z79.899 Other long term (current) drug therapy; Z88.8 Allergy status to other drugs, medicaments and biological substances; W01.10XA Fall on same level from slipping, tripping and stumbling with subsequent striking against unspecified object, initial encounter; Y93.89 Activity, other specified; Y92.89 Other specified places as the place of occurrence of the external cause; Y99.8 Other external cause status
CPT/HCPCS: 70450; 72125; 90471; 90715; 99285

== ENCOUNTER 2019-07-07 11:13 | Day surgery (SDC) | payer MEDICARE, MEDICAID ==
[~2019-07-07] VITALS: Ht 185.4 cm; Wt 74.6 kg
[2019-07-07] VITALS (8 sets, daily range): BP systolic 127–147; BP diastolic 38–99
[2019-07-07] MEDS ORDERED: normal saline 1000ml 1,000 ML IV SCH (11:35)
[2019-07-07 12:24] LABS: BASOPHILS % (AUTO) 0.3 % (0-1); EOSINOPHILS # (AUTO) 0.2 X10'3 (0-0.9); EOSINOPHILS % (AUTO) 1.5 % (0-6); LYMPHOCYTES # (AUTO) 1.6 X10'3 (1.1-4.8); MEAN CORPUSCULAR HEMOGLOBIN 29.9 PG (27.0-31.0); MEAN CORPUSCULAR HGB CONC 31.7 g/dL (33.0-36.5); MEAN CORPUSCULAR VOLUME 94.4 FL (78-98); MEAN PLATELET VOLUME 7.2 FL (7.4-10.4); MONOCYTES % (AUTO) 8.1 % (2-12); NEUTROPHILS # (AUTO) 9.2 X10'3 (1.8-7.7); NEUTROPHILS % (AUTO) 77.1 % (42-75); PLATELET COUNT 176 X10'3 (140-440); RED BLOOD COUNT 4.02 X10'6 (4.70-6.10); RED CELL DISTRIBUTION WIDTH 20.1 % (11.5-14.5); WHITE BLOOD COUNT 11.9 X10'3 (4.5-11.0)
[2019-07-07] MEDS ORDERED: LAN0.125T PO (12:29)
[2019-07-07] MEDS ORDERED: FLO0.4C PO (12:29)
[2019-07-07] MEDS ORDERED: METO25TA6 PO (12:29)
[2019-07-07] MEDS ORDERED: ATOR-2 PO (12:29)
[2019-07-07 12:33] LABS: ALBUMIN 3.2 G/DL (3.4-5.0); ANION GAP 8 (8-16); BLOOD UREA NITROGEN 80 MG/DL (7-18); BUN/CREATININE RATIO 20.8 (5.4-32.0); CALCIUM 9.5 MG/DL (8.5-10.1); CHLORIDE 105 MMOL/L (99-107); CREATININE 3.84 MG/DL (0.60-1.10); GLUCOSE 92 MG/DL (70-104); POTASSIUM 4.2 MMOL/L (3.5-5.1); SODIUM 143 MMOL/L (135-145); TOTAL CARBON DIOXIDE 30.2 MMOL/L (24-32); eGFR 15 ML/MIN
[2019-07-07 12:45] LABS: ANISOCYTOSIS 3+; PLATELET ESTIMATE NORMAL
[2019-07-07 12:46] LABS: LARGE PLATELETS FEW
[2019-07-07 12:47] LABS: SCHISTOCYTES FEW
[2019-07-07 12:48] LABS: ACANTHOCYTES FEW
[2019-07-07] MEDS ORDERED: cefazolin/dext.iso 2gm/100ml 100 ML IV ONE (14:00)
[2019-07-07] MEDS ORDERED: midazolam 2 mg/2 ml injection ONE (14:01)
[2019-07-07] MEDS ORDERED: fentaNYL/PF 50MCG/1 ML 2ML syringe ONE (14:01)
[2019-07-07] MEDS ORDERED: LIDOcaine 1%/PF 5ML 10 MG/ML VIAL ONE (14:05)
[2019-07-07] MEDS ORDERED: heparin 1,000unit/ml 10ml vial 10 ML ONE (14:07)
== END 2019-07-07 16:45 | disposition home or self-care (01) ==
LOC: SSTAY O 11:13
PROVIDERS: ATTEND Radiology Vascular & Interventional Radiology
DX: T82.49XA Other complication of vascular dialysis catheter, initial encounter (principal); N18.9 Chronic kidney disease, unspecified; Z88.8 Allergy status to other drugs, medicaments and biological substances; Z79.899 Other long term (current) drug therapy; Z79.82 Long term (current) use of aspirin; Z79.01 Long term (current) use of anticoagulants; Z82.49 Family history of ischemic heart disease and other diseases of the circulatory system; Z82.3 Family history of stroke; Y83.8 Other surgical procedures as the cause of abnormal reaction of the patient, or of later complication, without mention of misadventure at the time of the procedure; Y92.89 Other specified places as the place of occurrence of the external cause
CPT/HCPCS: 36415; 36581; 77001; 80048; 85025; 85610; 99152; C1750; C1769; J1644; J2250; J3010; J7030; 76937; A9270

== ENCOUNTER 2019-07-24 17:17 | Emergency (ER) | payer MEDICARE ==
[~2019-07-24] VITALS: Ht 185.4 cm; Wt 80.0 kg
[~2019-07-24 17:17] MED LIST changes: +ATOR-2 PO; -CRAN307T PO; -DOCU-28 PO; +FLO0.4C PO; -FURO20TA4 PO; -HYT1T PO; +LAN0.125T PO; +METO25TA6 PO; +MULT-620 PO; -MULT1TAB74 PO; -NIFE60TA2 PO; -ZOC40T PO
[2019-07-24] MEDS ORDERED: LIDOcaine 1% 30ml preserv. free vial IJ ONE (17:40)
[2019-07-24] MEDS ORDERED: morphine 4 MG/ML inj SYRINge IV ONE (18:55)
[2019-07-24] MEDS ORDERED: morphine 4 MG/ML inj SYRINge IV STA (20:59)
[2019-07-24] MEDS ORDERED: CELE-193 PO (22:23)
[2019-07-24] MEDS ORDERED: CEPH500C5 PO (22:24)
[2019-07-24 22:34] VITALS: BP 109/66
[2019-07-28] MEDS ORDERED: DIGO125T97 PO (16:51)
[2019-07-28] MEDS ORDERED: DOCU250C47 PO (16:51)
[2019-07-28] MEDS ORDERED: OMEP-50 PO (16:54)
[2019-07-28] MEDS ORDERED: CELE50CA PO (16:54)
[2019-07-28] MEDS ORDERED: CALC500T11 PO (16:54)
[2019-07-28] MEDS ORDERED: MELA3TAB39 PO (16:54)
== END 2019-07-24 22:57 | disposition home or self-care (01) ==
LOC: ER 17:18
DX: S09.90XA Unspecified injury of head, initial encounter (principal); S42.91XA Fracture of right shoulder girdle, part unspecified, initial encounter for closed fracture; S01.319A Laceration without foreign body of unspecified ear, initial encounter; I25.10 Atherosclerotic heart disease of native coronary artery without angina pectoris; I25.2 Old myocardial infarction; N18.6 End stage renal disease; I12.0 Hypertensive chronic kidney disease with stage 5 chronic kidney disease or end stage renal disease; Z99.2 Dependence on renal dialysis; Z90.49 Acquired absence of other specified parts of digestive tract; Z95.1 Presence of aortocoronary bypass graft; Z98.890 Other specified postprocedural states; Z60.2 Problems related to living alone; Z91.041 Radiographic dye allergy status; Z79.82 Long term (current) use of aspirin; Z79.899 Other long term (current) drug therapy; W19.XXXA Unspecified fall, initial encounter; Y93.89 Activity, other specified; Y92.89 Other specified places as the place of occurrence of the external cause; Y99.8 Other external cause status
CPT/HCPCS: 70450; 73030; 93005; 96374; 96376; 99285; J2270